=== PATIENT | male | born 1965 | race American Indian/Alaskan Native ===

== ENCOUNTER 2019-06-04 04:53 | Emergency (ER) | payer MEDICARE ==
[2019-06-04] MEDS ORDERED: NITROGLYCERIN 0.4 MG TAB SUBL SL PRN (05:41)
[2019-06-04] MEDS ORDERED: MORPHINE 2 MG/1 ML INJ IV ONE (05:41)
[2019-06-04 05:54] LABS: Hematocrit 41.9 % (35.5-45.6); Mean Corpuscular HGB Conc 33 % (32-34); Mean Corpuscular Volume 86 fl (84-94); Platelet Count 217 K/mm3 (140-440)
--- NOTE | 2019-06-04 05:56 | XRay Report ---
CHEST 1 VIEW 5:10 AM INDICATION / CLINICAL INFORMATION: Chest Pain. COMPARISON: None available. FINDINGS: SUPPORT DEVICES: There is a multilead left subclavian ICD with the tips of the pacing leads overlying the right atrial appendage, right ventricular apex and coronary sinus/left ventricle. HEART / MEDIASTINUM: There is mild cardiomegaly. Pulmonary vasculature is normal. The aorta is normal in caliber. LUNGS / PLEURA: No significant pulmonary or pleural abnormality. No pneumothorax. ADDITIONAL FINDINGS: No significant additional findings. IMPRESSION: Cardiomegaly without acute pulmonary disease. Signer Name: Young Montiel MD Signed: 06/04/2019 5:52 AM Workstation Name: [id number]
[2019-06-04] MEDS ORDERED: hydrALAZINE 20 MG/1 ML INJ ONE (06:04)
[2019-06-04] MEDS ORDERED: hydrALAZINE 20 MG/1 ML INJ IV ONE ×2 (06:07→06:43)
[2019-06-04 06:21] LABS: BUN/Creatinine Ratio 9; Blood Urea Nitrogen 12 mg/dL (9-20); Calcium 8.8 mg/dL (8.4-10.2); Hemolysis Index 8
[2019-06-04] MEDS ORDERED: LISINOPRIL 20 MG TAB PO ONE (06:21)
[2019-06-04] MEDS ORDERED: HYDROcodone/ACETAMINOPHEN 5-325 MG TAB PO ONE (06:21)
--- NOTE | 2019-06-04 06:21 | Emergency Department Report ---
ED Chest Pain HPI - General Chief Complaint: Chest Pain Stated Complaint: CHEST PAIN/SOB Time Seen by Provider: 06/04/19 06:16 Source: patient, EMS Mode of arrival: Ambulatory Limitations: No Limitations - History of Present Illness Initial Comments: Ms. Dorman is a 53-year-old male with history of asthma hypertension with defibrillator pacemaker who presents with chest pain shortness of breath for 3 days. He was recently released from [facility] today emergency release due to his medical issues. He was experiencing 3 weeks of chest pain shortness of breath. He was unable to receive his medication while detainment which include Eliquis carvedilol and furosemide. Nondescript chest pain been constant without change with exertion expiration. Symptoms did improve with albuterol MDI. MD Complaint: chest pain -: Gradual, week(s) (3) Onset: during rest Pain Location: substernal Pain Radiation: none Severity: moderate Severity scale (0 -10): 8 Quality: aching Consistency: constant Improves With: nothing Worsens With: nothing re: dyspnea - Related Data Home Medications Medication Instructions Recorded Confirmed Last Taken Apixaban [Eliquis] 5 mg PO BID 06/04/19 06/04/19 Unknown Cetirizine HCl [Zyrtec 10mg tab] 10 mg PO DAILY 06/04/19 06/04/19 Unknown Cyclobenzaprine [Flexeril] 10 mg PO TID PRN 06/04/19 06/04/19 Unknown Furosemide [Lasix] 10 mg PO QDAY 06/04/19 06/04/19 Unknown HYDROcodone/APAP 5-325 [[place] 1 each PO Q6HR PRN 06/04/19 06/04/19 Unknown 5/325] Simvastatin 10 mg PO QHS 06/04/19 06/04/19 Unknown carvediloL [Coreg] 25 mg PO BID 06/04/19 06/04/19 Unknown hydrALAZINE [Apresoline TAB] 100 mg PO BID 06/04/19 06/04/19 Unknown Previous Rx's Medication Instructions Recorded Last Taken Type Furosemide [Lasix TAB] 40 mg PO QDAY #30 tablet 06/04/19 Unknown Rx carvediloL [Coreg] 12.5 mg PO BID 30 Days #60 tablet 06/04/19 Unknown Rx Allergies Allergy/AdvReac Type Severity Reaction Status Date / Time Penicillins Allergy Hives Verified 06/04/19 05:00 Heart Score - HEART Score History: Slightly suspicious EKG: Non-specific Age: 45-65 Risk factors: 1-2 risk factors Troponin: < normal limit HEART Score: 3 ED Review of Systems ROS: Stated complaint: CHEST PAIN/SOB Other details as noted in HPI Comment: All other systems reviewed and negative Constitutional: denies: fever, malaise Respiratory: shortness of breath ED Past Medical Hx - Past Medical History Previous Medical History?: Yes Hx Hypertension: Yes Hx Asthma: Yes Additional medical history: Defibrillator/Pacemaker - Surgical History Past Surgical History?: Yes Additional Surgical History: Brain, Defibrillator/Pacemaker - Social History Smoking Status: Never Smoker Substance Use Type: None - Medications Home Medications: Home Medications Medication Instructions Recorded Confirmed Last Taken Type Apixaban [Eliquis] 5 mg PO BID 06/04/19 06/04/19 Unknown History Cetirizine HCl [Zyrtec 10mg tab] 10 mg PO DAILY 06/04/19 06/04/19 Unknown History Cyclobenzaprine [Flexeril] 10 mg PO TID PRN 06/04/19 06/04/19 Unknown History Furosemide [Lasix TAB] 40 mg PO QDAY #30 tablet 06/04/19 Unknown Rx Furosemide [Lasix] 10 mg PO QDAY 06/04/19 06/04/19 Unknown History HYDROcodone/APAP 5-325 [[place] 1 each PO Q6HR PRN 06/04/19 06/04/19 Unknown History 5/325] Simvastatin 10 mg PO QHS 06/04/19 06/04/19 Unknown History carvediloL [Coreg] 12.5 mg PO BID 30 Days #60 tablet 06/04/19 Unknown Rx carvediloL [Coreg] 25 mg PO BID 06/04/19 06/04/19 Unknown History hydrALAZINE [Apresoline TAB] 100 mg PO BID 06/04/19 06/04/19 Unknown History ED Physical Exam - General Limitations: No Limitations General appearance: alert, in no apparent distress - Head Head exam: Present: atraumatic, normocephalic - Eye Eye exam: Present: normal appearance - ENT ENT exam: Present: mucous membranes moist - Neck Neck exam: Present: normal inspection, full ROM - Respiratory Respiratory exam: Present: normal lung sounds bilaterally. Absent: respiratory distress, wheezes, rales, rhonchi - Cardiovascular Cardiovascular Exam: Present: regular rate, normal rhythm, normal heart sounds. Absent: systolic murmur, diastolic murmur, rubs, gallop - GI/Abdominal GI/Abdominal exam: Present: soft, normal bowel sounds. Absent: distended, tenderness, guarding, rebound - Rectal Rectal exam: Present: deferred - Extremities Exam Extremities exam: Present: normal inspection - Back Exam Back exam: Present: normal inspection - Neurological Exam Neurological exam: Present: alert, oriented X3 - Psychiatric Psychiatric exam: Present: normal affect, normal mood - Skin Skin exam: Present: warm, dry, intact, normal color. Absent: rash ED Course Vital Signs 06/04/19 06/04/19 06/04/19 05:17 05:33 05:44 Temperature 98.3 F Pulse Rate 60 62 Respiratory 20 20 Rate Blood Pressure 217/119 Blood Pressure 207/117 [Left] O2 Sat by Pulse 99 99 Oximetry 06/04/19 06/04/19 06/04/19 05:45 06:09 06:21 Temperature Pulse Rate 60 62 Respiratory 20 20 Rate Blood Pressure 233/124 Blood Pressure 186/102 [Left] O2 Sat by Pulse 98 Oximetry ED Medical Decision Making - Lab Data Result diagrams: 06/04/19 05:15 06/04/19 05:15 - Medical Decision Making Atypical chest pain for acute coronary syndrome no indication of pulmonary embolism. Refer to cardiology as outpatient. Asymptomatic hypertension otherwise. Discharged home. Critical care attestation.: If time is entered above; I have spent that time in minutes in the direct care of this critically ill patient, excluding procedure time. ED Disposition Clinical Impression: Hypertensive urgency, Chest pain Disposition: DC-01 TO HOME OR SELFCARE Is pt being admited?: No Does the pt Need Aspirin: No Condition: Stable Instructions: Chest Pain (ED) Prescriptions: carvediloL [Coreg] 12.5 mg PO BID 30 Days #60 tablet Furosemide [Lasix TAB] 40 mg PO QDAY #30 tablet Referrals: LEONILA YEPEZ MD [Staff Physician] - 3-5 Days
[2019-06-04 07:02] LABS: Basophils % (Manual) 0 % (0.0-1.8); Ovalocytes Few; Platelet Estimate Consistent w Auto; Total Cells Counted 100
[2019-06-04 07:46] VITALS: BP 183/102
== END 2019-06-04 07:50 | disposition home or self-care (01) ==
LOC: ED 04:53
DX: I16.0 Hypertensive urgency (principal); R07.89 Other chest pain; Z79.899 Other long term (current) drug therapy; Z98.890 Other specified postprocedural states
CPT/HCPCS: 36415; 71045; 80048; 84484; 85007; 85025; 93005; 93010; 96374; 96375; 96376; 99285; J0360; J2270